=== PATIENT | female | born 1995 | race Two or more races ===

== ENCOUNTER 2023-04-21 19:15 | Inpatient (IN) | payer OTHER ==
[~2023-04-21] VITALS: Ht 157.5 cm; Wt 70.6 kg
[~2023-04-21 19:15] MED LIST: DOXY-354 PO; IBUP-1506 PO
[2023-04-21 20:36] LABS: BASOPHILS % (AUTO) 0.9 % (0.0-2.0); HEMATOCRIT 39.1 % (36-46); HEMOGLOBIN 13.1 g/dL (12.0-16.0); LYMPHOCYTES # (AUTO) 2.8 K/uL (1.0-4.8); MEAN CORPUSCULAR HEMOGLOBIN 30.2 pg (26.0-34.0); MEAN CORPUSCULAR HGB CONC 33.4 G/dL (31.0-37.0); MEAN CORPUSCULAR VOLUME 90 fL (80-100); MONOCYTES # (AUTO) 0.7 K/uL (0.1-1.0); MONOCYTES % (AUTO) 6.5 % (2.0-9.0); NEUTROPHILS # (AUTO) 6.5 K/uL (1.8-7.7); NEUTROPHILS % (AUTO) 63.6 % (40.0-70.0); PLATELET COUNT (AUTO) 265 K/uL (150-450); RED BLOOD CELL COUNT(AUTO) 4.33 MIL/uL (4.00-5.20); RED CELL DISTRIBUTION WIDTH 13.4 % (11.5-14.5); WHITE BLOOD COUNT (AUTO) 10.2 K/uL (4.5-11.0)
[2023-04-21 20:51] LABS: ANION GAP 10 mmol/L (8-16); CALCIUM, TOTAL 9.2 mg/dL (8.8-10.5); CARBON DIOXIDE 26 mmol/L (22-29); CHLORIDE 102 mmol/L (98-107); CREATININE 0.57 mg/dL (0.60-1.30); GLOMERULAR FILTR. RATE CALC > 60 mL/min (>60); GLUCOSE,RANDOM 132 mg/dL (70-110); POTASSIUM 3.6 mmol/L (3.5-5.1); SODIUM SERUM 138 mmol/L (136-145); UREA NITROGEN, BLOOD 10 mg/dL (7-18)
[2023-04-21 20:55] LABS: ALANINE AMINOTRANSFERASE 25 U/L (12-78); ALBUMIN 3.7 g/dL (3.4-5.0); ALKALINE PHOSPHATASE 68 U/L (46-116); ASPARTATE AMINOTRANSFERASE 19 U/L (15-37); BILIRUBIN,TOTAL 0.2 mg/dL (0.1-1.0); TOTAL PROTEIN, SERUM 7.6 g/dL (6.4-8.2)
[2023-04-21 21:21] LABS: ALCOHOL, BLOOD (SERUM) < 3 mg/dL (0-10)
[2023-04-21 22:16] LABS: COVID AG,FIA SOURCE NASAL SWAB
[2023-04-21 23:02] LABS: SARS-COV2 (COVID) ANTIGEN,FIA Negative (Negative)
[2023-04-21] MEDS ORDERED: 0.9% SODIUM CHLORIDE 10 ML SYRINGE IVP PRN (23:30)
[2023-04-21] MEDS ORDERED: ACETAMINOPHEN 325 MG TABLET PO PRN (23:30)
[2023-04-22] MEDS ORDERED: MORPHINE SULFATE 2 MG/ML SYRINGE IVP PRN (00:30)
[2023-04-22] MEDS ORDERED: MAGNESIUM HYDROXIDE SUSPENSION 30 ML UDCUP PO PRN (00:30)
[2023-04-22] MEDS: DOXYCYCLINE HYCLATE 100 MG TABLET PO ONE (00:30)
[2023-04-22] MEDS ORDERED: HYDROCODONE/ACETAMINOPHEN 5-325 MG TABLET PO PRN (00:30)
[2023-04-22] MEDS ORDERED: BISACODYL 10 MG RECTAL RECTAL SUPPOSITORY PR PRN (00:30)
[2023-04-22] MEDS ORDERED: ALBUTEROL SULFATE 2.5 MG/0.5 ML NEB SOLUTION NEB PRN (00:30)
[2023-04-22] MEDS: IBUPROFEN 600 MG TABLET PO ONE (00:30)
[2023-04-22] MEDS ORDERED: IPRATROPIUM BROMIDE 0.5 MG/2.5 ML NEB SOLUTION NEB PRN (00:30)
[2023-04-22] MEDS ORDERED: ONDANSETRON HCL 4 MG/2 ML VIAL IVP PRN (00:30)
[2023-04-22] MEDS: ZOLPIDEM TARTRATE 5 MG TABLET PO PRN (00:30)
[2023-04-22 04:56] VITALS: BP 103/64; PULSE 63; RESP 20; TEMP 98.2
[2023-04-22] MEDS: ACETAMINOPHEN 325 MG TABLET PO PRN (05:18)
[2023-04-22] MEDS: PANTOPRAZOLE SODIUM 40 MG DR TABLET PO SCH (08:20)
[2023-04-22] MEDS: HEPARIN SODIUM,PORCINE 5,000 UNITS/ML VIAL SQ SCH (08:20)
[2023-04-22 08:25] VITALS: BP 108/59; PULSE 52; RESP 18; TEMP 97.9
[2023-04-22] MEDS: RisperiDONE 0.5 MG TABLET PO ONE (15:37)
[2023-04-22 19:33] VITALS: BP 102/52; PULSE 68; RESP 20; TEMP 98.8
[2023-04-22] MEDS: ESCITALOPRAM OXALATE 10 MG TABLET PO SCH (20:14)
[2023-04-22] MEDS: RisperiDONE 1 MG TABLET PO SCH (20:14)
[2023-04-22 23:01] LABS: PH,URINE DRUG SCREEN 5.5 (5.0-8.0)
[2023-04-22 23:06] LABS: ALCOHOL, URINE DRUG SCREEN NEGATIVE (NEGATIVE); AMPHET/METH SCREEN,URINE NEGATIVE (NEGATIVE); BARBITURATE SCREEN, URINE NEGATIVE (NEGATIVE); BENZODIAZEPINES SCREEN,URINE NEGATIVE (NEGATIVE); CANNABINOID SCREEN,URINE NEGATIVE (NEGATIVE); COCAINE SCREEN,URINE NEGATIVE (NEGATIVE); METHADONE SCREEN, URINE NEGATIVE (NEGATIVE); OPIATE SCREEN,URINE NEGATIVE (NEGATIVE); PHENCYCLIDINE SCREEN,URINE NEGATIVE (NEGATIVE)
[2023-04-23 04:17] VITALS: BP 113/60; PULSE 71; RESP 18; TEMP 98
[2023-04-23 08:49] VITALS: BP 103/58; PULSE 64; RESP 18; TEMP 97.9
[2023-04-23] MEDS: DOXYCYCLINE HYCLATE 100 MG TABLET PO ONE (12:20)
[2023-04-23 18:23] VITALS: BP 107/59; PULSE 70; RESP 19; TEMP 97.9
[2023-04-23] MEDS: DOXYCYCLINE HYCLATE 100 MG TABLET PO SCH (20:21)
[2023-04-23 20:25] VITALS: BP 115/60; PULSE 72; RESP 18; TEMP 97.9
[2023-04-24 03:06] LABS: HEPATITIS C AB (EIA) Non Reactive (Non Reactive)
[2023-04-24 04:31] VITALS: BP 111/64; PULSE 65; RESP 18; TEMP 98
[2023-04-24 08:15] VITALS: BP 103/52; PULSE 68; RESP 19; TEMP 98.4
[2023-04-24 20:30] VITALS: BP 101/63; PULSE 75; RESP 20; TEMP 98.3
[2023-04-25 04:25] VITALS: BP 114/72; PULSE 62; RESP 18; TEMP 98.1
[2023-04-25 08:34] VITALS: BP 101/63; PULSE 60; RESP 18; TEMP 98.2
[2023-04-25] MEDS ORDERED: ESCI-8 PO (10:04)
[2023-04-25] MEDS ORDERED: RISP-31 PO (10:05)
== END 2023-04-25 16:00 | DRG 603 ==
LOC: EMS 19:17 → 6S 04-22 03:55
PROVIDERS: ADMIT Hospitalist; ATTEND Hospitalist
DX: L03.115 Cellulitis of right lower limb (principal); R45.851 Suicidal ideations; F31.5 Bipolar disorder, current episode depressed, severe, with psychotic features; Z20.822 Contact with and (suspected) exposure to COVID-19; F41.9 Anxiety disorder, unspecified; G47.00 Insomnia, unspecified
CPT/HCPCS: 80053; 80307; 84703; 85025; 86803; 87340; 87481; 99285; G0480; J1644

== ENCOUNTER → 2023-07-13 | Outpatient (CLI) | payer OTHER ==
[~2023-07-13] MED LIST changes: +ESCI-8 PO; +RISP-31 PO
== END | disposition home or self-care (01) ==
LOC: RADMN 10:23
PROVIDERS: ATTEND Physician Assistant
DX: S86.021D Laceration of right Achilles tendon, subsequent encounter (principal); S99.811D Other specified injuries of right ankle, subsequent encounter; M76.61 Achilles tendinitis, right leg; X58.XXXD Exposure to other specified factors, subsequent encounter
CPT/HCPCS: 73721

== ENCOUNTER 2023-10-29 06:05 | Inpatient (IN) | payer OTHER ==
[~2023-10-29] VITALS: Ht 165.1 cm; Wt 76.4 kg
[~2023-10-29 06:05] MED LIST changes: -DOXY-354 PO; -IBUP-1506 PO; +RINGERS SOLUTION,LACTATED 1,000 ML IV ONE
[2023-10-29] MEDS ORDERED: SODIUM CL IRRIG SOLN BAG 3,000 ML IRRIG ONE (07:14)
[2023-10-29] MEDS ORDERED: VANCOMYCIN HCL 1 GM VIAL ONE (07:14)
[2023-10-29] MEDS ORDERED: MUPIROCIN CALCIUM 2% 22 GM OINTMENT ONE (07:15)
[2023-10-29] MEDS ORDERED: RINGERS SOLUTION,LACTATED 1,000 ML IV ONE ×2 (07:30→10:32)
[2023-10-29] MEDS: CHLORHEXIDINE GLUCONATE 2% TOWELETTE [2'S/6'S] TP ONE (07:38)
[2023-10-29] MEDS: ETHYL ALCOHOL 62% ANTISEPTIC NASAL SANITIZER 0.6 ML AMPUL NASAL ONE (07:42)
[2023-10-29] MEDS: RINGERS SOLUTION,LACTATED 1,000 ML IV ONE (08:32)
[2023-10-29] MEDS ORDERED: HYDROmorphone HCL 2 MG/ML SYRINGE IVP PRN (09:45)
[2023-10-29] MEDS ORDERED: VANCOMYCIN HCL 500 MG VIAL ONE (09:48)
[2023-10-29] MEDS: BUPIVACAINE HCL/PF 0.5% 30 ML VIAL ONE (10:27)
[2023-10-29] MEDS ORDERED: FentaNYL CITRATE PF 100 MCG/2 ML VIAL ONE (10:59)
[2023-10-29] MEDS: FentaNYL CITRATE PF 100 MCG/2 ML VIAL IVP PRN (11:00)
[2023-10-29] MEDS ORDERED: OxyCODONE HCL/ACETAMINOPHEN 5-325 MG TABLET PO PRN ×4 (11:30→11:45)
[2023-10-29] MEDS ORDERED: ONDANSETRON HCL 4 MG/2 ML VIAL IVP ONE (12:00)
[2023-10-29] MEDS ORDERED: SUGAMMADEX SODIUM 200 MG/2 ML VIAL IVP ONE (12:00)
[2023-10-29] MEDS ORDERED: GLYCOPYRROLATE 0.2 MG/ML VIAL IM ONE (12:00)
[2023-10-29] MEDS ORDERED: FentaNYL CITRATE PF 100 MCG/2 ML VIAL IVP ONE (12:00)
[2023-10-29] MEDS ORDERED: SUCCINYLCHOLINE CHLORIDE 20 MG/ML 10 ML VIAL IVP ONE (12:00)
[2023-10-29] MEDS ORDERED: DEXAMETHASONE SOD PHOS 4 MG/ML VIAL IVP ONE (12:00)
[2023-10-29] MEDS ORDERED: MIDAZOLAM HCL 2 MG/2 ML VIAL IVP ONE (12:00)
[2023-10-29] MEDS ORDERED: KETOROLAC TROMETHAMINE 60 MG/2 ML VIAL IM ONE (12:00)
[2023-10-29] MEDS ORDERED: PROPOFOL 1% 20 ML VIAL IVP ONE (12:00)
[2023-10-29 12:58] VITALS: BP 125/79; PULSE 87; RESP 18; TEMP 97.7; O2SAT 98
[2023-10-29] MEDS: HEPARIN SODIUM,PORCINE 5,000 UNITS/ML VIAL SQ SCH (16:00)
[2023-10-29 16:11] VITALS: BP 107/60; PULSE 70; RESP 18; TEMP 97.6; O2SAT 97
[2023-10-29 16:48] LABS: ANION GAP 10 mmol/L (8-16); CALCIUM, TOTAL 8.8 mg/dL (8.8-10.5); CARBON DIOXIDE 23 mmol/L (22-29); CHLORIDE 103 mmol/L (98-107); CREATININE 0.89 mg/dL (0.60-1.30); GLOMERULAR FILTR. RATE CALC > 60 mL/min (>60); GLUCOSE,RANDOM 138 mg/dL (70-110); SODIUM SERUM 136 mmol/L (136-145); UREA NITROGEN, BLOOD 7 mg/dL (7-18)
[2023-10-29 17:04] LABS: BASOPHILS % (AUTO) 0.1 % (0.0-2.0); EOSINOPHILS % (AUTO) 0 % (1.0-6.0); HEMATOCRIT 38.4 % (36-46); HEMOGLOBIN 12.8 g/dL (12.0-16.0); LYMPHOCYTES # (AUTO) 0.9 K/uL (1.0-4.8); LYMPHOCYTES % (AUTO) 7.2 % (22.0-44.0); MEAN CORPUSCULAR HGB CONC 33.4 G/dL (31.0-37.0); MEAN CORPUSCULAR VOLUME 90 fL (80-100); MONOCYTES # (AUTO) 0.2 K/uL (0.1-1.0); MONOCYTES % (AUTO) 1.8 % (2.0-9.0); NEUTROPHILS # (AUTO) 11.4 K/uL (1.8-7.7); PLATELET COUNT (AUTO) 298 K/uL (150-450); RED BLOOD CELL COUNT(AUTO) 4.27 MIL/uL (4.00-5.20); RED CELL DISTRIBUTION WIDTH 13.2 % (11.5-14.5); WHITE BLOOD COUNT (AUTO) 12.6 K/uL (4.5-11.0)
[2023-10-29 17:06] LABS: NEUTROPHILS % (AUTO) 90.9 % (40.0-70.0)
[2023-10-29] MEDS ORDERED: SODIUM CHLORIDE 0.9% 250 ML IV ONE (17:29)
[2023-10-29] MEDS: VANCOMYCIN HCL 1.5 GM in DEXTROSE 5%-WATER 250 ML IV ONE (17:33)
[2023-10-29] MEDS: OxyCODONE HCL/ACETAMINOPHEN 5-325 MG TABLET PO PRN (17:34)
[2023-10-29 17:41] VITALS: BP 99/57; PULSE 71; RESP 18
[2023-10-29 19:53] VITALS: BP 106/60; PULSE 67; RESP 18; TEMP 98; O2SAT 95
[2023-10-29] MEDS: OXYGEN THERAPY IH SCH (20:00)
[2023-10-29] MEDS: ZOLPIDEM TARTRATE 5 MG TABLET PO PRN (20:23)
[2023-10-29] MEDS: ACETAMINOPHEN 325 MG TABLET PO PRN (20:23)
[2023-10-29] MEDS: DOCUSATE SODIUM 100 MG CAPSULE PO SCH (20:23)
[2023-10-30 04:25] VITALS: BP 97/49; PULSE 56; RESP 16; TEMP 97.7; O2SAT 98
[2023-10-30 06:54] LABS: ANION GAP 12 mmol/L (8-16); CALCIUM, TOTAL 8.8 mg/dL (8.8-10.5); CARBON DIOXIDE 24 mmol/L (22-29); CHLORIDE 102 mmol/L (98-107); CREATININE 0.83 mg/dL (0.60-1.30); GLOMERULAR FILTR. RATE CALC > 60 mL/min (>60); GLUCOSE,RANDOM 113 mg/dL (70-110); POTASSIUM 3.8 mmol/L (3.5-5.1); SODIUM SERUM 138 mmol/L (136-145); UREA NITROGEN, BLOOD 10 mg/dL (7-18)
[2023-10-30] MEDS ORDERED: VANCOMYCIN HCL 1.25 GM in DEXTROSE 5%-WATER 250 ML IV SCH (08:00)
[2023-10-30] MEDS: FAMOTIDINE 20 MG TABLET PO SCH (08:24)
[2023-10-30] MEDS: VANCOMYCIN HCL 1 GM in DEXTROSE 5%-WATER 250 ML IV SCH (08:24)
[2023-10-30] MEDS: ETHYL ALCOHOL 62% ANTISEPTIC NASAL SANITIZER 0.6 ML AMPUL NASAL ONE (08:25)
[2023-10-30] MEDS ORDERED: SODIUM CHLORIDE 0.9% 250 ML IV ONE (08:35)
[2023-10-30 16:41] LABS: APPEARANCE,URINE CLEAR (CLEAR); BILIRUBIN,URINE NEGATIVE (NEGATIVE); COLOR,URINE LIGHT YELLOW (YELLOW); GLUCOSE, URINE (UA) NEGATIVE (NEGATIVE); KETONES,URINE NEGATIVE (NEGATIVE); LEUKOCYTE ESTERASE ,URINE NEGATIVE (NEGATIVE); NITRATE,URINE NEGATIVE (NEGATIVE); OCCULT BLOOD,URINE NEGATIVE (NEGATIVE); PH,URINE 6.5 (5.0-8.0); PROTEIN,URINE NEGATIVE (NEGATIVE); UROBILINOGEN,URINE <=1.0 mg/dL (<=1.0)
[2023-10-30 20:05] VITALS: BP 108/63; PULSE 74; RESP 16; TEMP 98.3; O2SAT 96
[2023-10-30] MEDS: CHLORHEXIDINE GLUCONATE 2% TOWELETTE [2'S/6'S] TP SCH (23:28)
[2023-10-31 04:26] VITALS: BP 107/55; PULSE 59; RESP 16; TEMP 98.5; O2SAT 97
[2023-10-31 07:01] LABS: ANION GAP 10 mmol/L (8-16); CALCIUM, TOTAL 8.4 mg/dL (8.8-10.5); CARBON DIOXIDE 23 mmol/L (22-29); CHLORIDE 104 mmol/L (98-107); CREATININE 0.69 mg/dL (0.60-1.30); GLOMERULAR FILTR. RATE CALC > 60 mL/min (>60); GLUCOSE,RANDOM 97 mg/dL (70-110); POTASSIUM 3.8 mmol/L (3.5-5.1); SODIUM SERUM 137 mmol/L (136-145); UREA NITROGEN, BLOOD 12 mg/dL (7-18)
[2023-10-31 07:34] LABS: VANCOMYCIN,RANDOM 12.9 mcg/mL (25.0-50.0)
[2023-10-31] MEDS: ETHYL ALCOHOL 62% ANTISEPTIC NASAL SANITIZER 0.6 ML AMPUL NASAL SCH (08:16)
[2023-10-31 08:26] VITALS: BP 98/54; PULSE 51; RESP 18; TEMP 98.4; O2SAT 98
[2023-10-31] MEDS: MUPIROCIN CALCIUM 2% 22 GM OINTMENT TP SCH (08:27)
[2023-10-31] MEDS: VANCOMYCIN HCL 1.25 GM in DEXTROSE 5%-WATER 250 ML IV SCH (17:00)
[2023-10-31 20:00] VITALS: BP 106/58; PULSE 66; RESP 16; TEMP 97.7; O2SAT 96
[2023-11-01 04:15] VITALS: BP 97/55; PULSE 58; RESP 18; TEMP 97.8; O2SAT 96
[2023-11-01 07:04] LABS: BASOPHILS % (AUTO) 0.6 % (0.0-2.0); EOSINOPHILS % (AUTO) 2.4 % (1.0-6.0); HEMOGLOBIN 13.7 g/dL (12.0-16.0); LYMPHOCYTES # (AUTO) 3.5 K/uL (1.0-4.8); MEAN CORPUSCULAR HEMOGLOBIN 30.8 pg (26.0-34.0); MEAN CORPUSCULAR HGB CONC 34.4 G/dL (31.0-37.0); MEAN CORPUSCULAR VOLUME 90 fL (80-100); MONOCYTES # (AUTO) 0.9 K/uL (0.1-1.0); MONOCYTES % (AUTO) 8.3 % (2.0-9.0); NEUTROPHILS # (AUTO) 5.6 K/uL (1.8-7.7); NEUTROPHILS % (AUTO) 54.7 % (40.0-70.0); PLATELET COUNT (AUTO) 302 K/uL (150-450); RED BLOOD CELL COUNT(AUTO) 4.46 MIL/uL (4.00-5.20); RED CELL DISTRIBUTION WIDTH 13.1 % (11.5-14.5); WHITE BLOOD COUNT (AUTO) 10.2 K/uL (4.5-11.0)
[2023-11-01 07:27] LABS: ANION GAP 10 mmol/L (8-16); CALCIUM, TOTAL 9.1 mg/dL (8.8-10.5); CARBON DIOXIDE 25 mmol/L (22-29); CHLORIDE 102 mmol/L (98-107); GLOMERULAR FILTR. RATE CALC > 60 mL/min (>60); GLUCOSE,RANDOM 106 mg/dL (70-110); SODIUM SERUM 137 mmol/L (136-145); UREA NITROGEN, BLOOD 15 mg/dL (7-18)
[2023-11-01 08:43] VITALS: BP 99/60; PULSE 59; RESP 18; TEMP 98.1; O2SAT 97
[2023-11-01] MEDS: MAGNESIUM HYDROXIDE SUSPENSION 30 ML UDCUP PO PRN (16:26)
[2023-11-01 20:10] VITALS: BP 112/61; PULSE 65; RESP 18; TEMP 97.9; O2SAT 96
[2023-11-02 07:39] LABS: BASOPHILS % (AUTO) 0.6 % (0.0-2.0); EOSINOPHILS % (AUTO) 2.2 % (1.0-6.0); HEMOGLOBIN 13.8 g/dL (12.0-16.0); LYMPHOCYTES # (AUTO) 3.4 K/uL (1.0-4.8); LYMPHOCYTES % (AUTO) 32.4 % (22.0-44.0); MEAN CORPUSCULAR HEMOGLOBIN 30.9 pg (26.0-34.0); MEAN CORPUSCULAR HGB CONC 34.5 G/dL (31.0-37.0); MEAN CORPUSCULAR VOLUME 89 fL (80-100); MONOCYTES # (AUTO) 0.8 K/uL (0.1-1.0); MONOCYTES % (AUTO) 7.4 % (2.0-9.0); NEUTROPHILS # (AUTO) 6.1 K/uL (1.8-7.7); NEUTROPHILS % (AUTO) 57.4 % (40.0-70.0); PLATELET COUNT (AUTO) 302 K/uL (150-450); RED BLOOD CELL COUNT(AUTO) 4.48 MIL/uL (4.00-5.20); WHITE BLOOD COUNT (AUTO) 10.6 K/uL (4.5-11.0)
[2023-11-02 07:54] LABS: ANION GAP 10 mmol/L (8-16); CALCIUM, TOTAL 8.8 mg/dL (8.8-10.5); CARBON DIOXIDE 24 mmol/L (22-29); CHLORIDE 101 mmol/L (98-107); CREATININE 0.66 mg/dL (0.60-1.30); GLOMERULAR FILTR. RATE CALC > 60 mL/min (>60); GLUCOSE,RANDOM 112 mg/dL (70-110); POTASSIUM 3.9 mmol/L (3.5-5.1); SODIUM SERUM 135 mmol/L (136-145); UREA NITROGEN, BLOOD 17 mg/dL (7-18)
[2023-11-02] MEDS: VANCOMYCIN HCL 1 GM in DEXTROSE 5%-WATER 250 ML IV SCH (09:32)
[2023-11-02 09:53] VITALS: BP 128/67; PULSE 74; RESP 18; TEMP 98.8; O2SAT 97
[2023-11-02] MEDS ORDERED: DOCU-385 PO (17:54)
[2023-11-02] MEDS ORDERED: FAMO20 PO (17:54)
[2023-11-02] MEDS ORDERED: MUPI1OIN5 TP (17:55)
[2023-11-02] MEDS ORDERED: ACET-2247 PO (18:27)
[2023-11-02] MEDS ORDERED: MAGN-169 PO (18:27)
[2023-11-02] MEDS ORDERED: OXYC-38 PO ×2 (18:29→18:30)
[2023-11-02] MEDS ORDERED: ZOLP-280 PO (18:30)
[2023-11-02 20:15] VITALS: BP 114/66; PULSE 79; RESP 18; TEMP 98.2; O2SAT 98
[2023-11-03 05:21] VITALS: BP 113/77; PULSE 75; RESP 18; TEMP 97.5; O2SAT 96
[2023-11-03 07:31] LABS: BASOPHILS % (AUTO) 0.7 % (0.0-2.0); EOSINOPHILS % (AUTO) 2.2 % (1.0-6.0); HEMATOCRIT 39.3 % (36-46); HEMOGLOBIN 13.8 g/dL (12.0-16.0); LYMPHOCYTES # (AUTO) 3.2 K/uL (1.0-4.8); LYMPHOCYTES % (AUTO) 29.6 % (22.0-44.0); MEAN CORPUSCULAR HEMOGLOBIN 30.9 pg (26.0-34.0); MEAN CORPUSCULAR HGB CONC 35.1 G/dL (31.0-37.0); MEAN CORPUSCULAR VOLUME 88 fL (80-100); MONOCYTES # (AUTO) 0.9 K/uL (0.1-1.0); MONOCYTES % (AUTO) 8.2 % (2.0-9.0); NEUTROPHILS # (AUTO) 6.3 K/uL (1.8-7.7); NEUTROPHILS % (AUTO) 59.3 % (40.0-70.0); PLATELET COUNT (AUTO) 332 K/uL (150-450); RED BLOOD CELL COUNT(AUTO) 4.45 MIL/uL (4.00-5.20); RED CELL DISTRIBUTION WIDTH 13.3 % (11.5-14.5); WHITE BLOOD COUNT (AUTO) 10.6 K/uL (4.5-11.0)
[2023-11-03 07:38] LABS: ANION GAP 10 mmol/L (8-16); CALCIUM, TOTAL 8.5 mg/dL (8.8-10.5); CARBON DIOXIDE 23 mmol/L (22-29); CHLORIDE 100 mmol/L (98-107); CREATININE 0.65 mg/dL (0.60-1.30); GLOMERULAR FILTR. RATE CALC > 60 mL/min (>60); GLUCOSE,RANDOM 111 mg/dL (70-110); POTASSIUM 3.8 mmol/L (3.5-5.1); SODIUM SERUM 132 mmol/L (136-145); UREA NITROGEN, BLOOD 14 mg/dL (7-18)
[2023-11-03 08:30] VITALS: BP 112/72; PULSE 69; RESP 19; TEMP 97.6; O2SAT 96
[2023-11-03 20:25] VITALS: BP 131/66; PULSE 86; RESP 20; TEMP 98; O2SAT 100
[2023-11-04 08:03] VITALS: BP 108/72; PULSE 71; RESP 20; TEMP 98.3; O2SAT 97
[2023-11-04 08:53] LABS: ANION GAP 12 mmol/L (8-16); CALCIUM, TOTAL 8.7 mg/dL (8.8-10.5); CARBON DIOXIDE 22 mmol/L (22-29); CHLORIDE 102 mmol/L (98-107); CREATININE 0.69 mg/dL (0.60-1.30); GLOMERULAR FILTR. RATE CALC > 60 mL/min (>60); GLUCOSE,RANDOM 154 mg/dL (70-110); POTASSIUM 3.6 mmol/L (3.5-5.1); SODIUM SERUM 136 mmol/L (136-145); UREA NITROGEN, BLOOD 13 mg/dL (7-18); VANCOMYCIN,RANDOM 8.4 mcg/mL (25.0-50.0)
[2023-11-04 19:49] VITALS: BP 107/70; PULSE 82; RESP 18; TEMP 98.4; O2SAT 96
[2023-11-04] MEDS: CHLORHEXIDINE GLUCONATE 4% 118 ML TOPICAL LIQUID TP SCH (20:22)
[2023-11-04] MEDS: OxyCODONE HCL/ACETAMINOPHEN 5-325 MG TABLET PO PRN (22:07)
[2023-11-04] MEDS: ONDANSETRON HCL 4 MG/2 ML VIAL IVP PRN (22:11)
[2023-11-05] MEDS ORDERED: SODIUM CHLORIDE 0.9% 500 ML IV ONE (02:08)
[2023-11-05 04:25] VITALS: BP 101/65; PULSE 80; RESP 18; TEMP 98; O2SAT 97
[2023-11-05 08:00] VITALS: RESP 18
[2023-11-05 08:00] LABS: ANION GAP 10 mmol/L (8-16); CALCIUM, TOTAL 8.4 mg/dL (8.8-10.5); CARBON DIOXIDE 24 mmol/L (22-29); CHLORIDE 102 mmol/L (98-107); CREATININE 0.58 mg/dL (0.60-1.30); GLOMERULAR FILTR. RATE CALC > 60 mL/min (>60); GLUCOSE,RANDOM 109 mg/dL (70-110); POTASSIUM 3.6 mmol/L (3.5-5.1); SODIUM SERUM 136 mmol/L (136-145); UREA NITROGEN, BLOOD 14 mg/dL (7-18); VANCOMYCIN,RANDOM 13.2 mcg/mL (25.0-50.0)
[2023-11-05 12:00] VITALS: RESP 18
[2023-11-05] MEDS: VANCOMYCIN HCL 1.25 GM in DEXTROSE 5%-WATER 250 ML IV SCH (15:33)
[2023-11-05 16:01] VITALS: BP 112/62; PULSE 76; RESP 18; TEMP 98.5; O2SAT 99
[2023-11-06] MEDS ORDERED: CHLORHEXIDINE GLUCONATE 4% 118 ML TOPICAL LIQUID TP SCH (09:00)
== END 2023-11-05 17:00 | disposition left against medical advice (07) | DRG 575 ==
LOC: 5N 06:05 → 6S 19:44
PROVIDERS: ADMIT Orthopaedic Surgery; ATTEND Orthopaedic Surgery
PROC: 0JBQ0ZZ Excision of Right Foot Subcutaneous Tissue and Fascia, Open Approach (ICD-10-PCS; 2023-10-29)
PROC: 8E0YXY8 Suture Removal from Lower Extremity (ICD-10-PCS; 2023-10-29)
PROC: 0YBK0ZZ Excision of Right Ankle Region, Open Approach (ICD-10-PCS; principal; 2023-10-29 09:30)
DX: L02.415 Cutaneous abscess of right lower limb (principal); I10 Essential (primary) hypertension; M77.9 Enthesopathy, unspecified; D72.829 Elevated white blood cell count, unspecified; Z88.1 Allergy status to other antibiotic agents; Z90.49 Acquired absence of other specified parts of digestive tract; Z53.29 Procedure and treatment not carried out because of patient's decision for other reasons
CPT/HCPCS: 80048; 80202; 81003; 84703; 85025; 87070; 87081; 87147; 87186; 87205; 88300; 97110; 97162; 97164; 97530; J0330; J1100; J1644; J1885; J2250; J2405; J2704; J3010; J3370; J3490; J7040; J7050; J7060; J7120